=== PATIENT | male | born 1955 | race African-American/Black ===

== ENCOUNTER 2018-01-11 17:12 | Emergency (ER) | payer MEDICARE | END 2018-01-11 20:21 | disposition home or self-care (01) | LOC: D.ER 17:12 | DX: S20.219A Contusion of unspecified front wall of thorax, initial encounter (principal); W01.0XXA Fall on same level from slipping, tripping and stumbling without subsequent striking against object, initial encounter; Y93.89 Activity, other specified; Y92.019 Unspecified place in single-family (private) house as the place of occurrence of the external cause; S16.1XXA Strain of muscle, fascia and tendon at neck level, initial encounter; H40.9 Unspecified glaucoma; F17.200 Nicotine dependence, unspecified, uncomplicated ==

== ENCOUNTER 2018-01-17 14:12 | Emergency (ER) | payer MEDICARE, MEDICAID | END 2018-01-17 18:44 | disposition home or self-care (01) | LOC: D.ER 14:12 | DX: S20.219A Contusion of unspecified front wall of thorax, initial encounter (principal); W19.XXXA Unspecified fall, initial encounter; Y93.89 Activity, other specified; Y92.019 Unspecified place in single-family (private) house as the place of occurrence of the external cause; H40.9 Unspecified glaucoma ==

== ENCOUNTER 2018-03-27 08:49 | Emergency (ER) | payer MEDICARE, MEDICAID ==
[2018-03-27 09:27] LABS: BASOPHILS 0.3 % (0-2); EOSINOPHILS 3.9 % (0-7); HEMATOCRIT 48.1 % (42.0-54.0); HEMOGLOBIN 16.9 g/dL (13.5-17.5); IMMATURE GRANULOCYTES 0.3 % (0-5); LYMPHOCYTES 35.4 % (15-50); MCH 30.2 pg (26.0-34.0); MCHC 35.1 g/dL (31.0-37.0); MEAN PLATELET VOLUME 9.7 fL (7.4-10.4); MONOCYTES 6.4 % (2-11); NEUTROPHILS 53.7 % (40-80); PLATELET COUNT 153 10x3/uL (130-400); RBC 5.59 10x6/uL (4.20-6.10); RDW 12.9 % (11.5-14.5); WBC 7.7 10x3/uL (4.8-10.8)
[2018-03-27 09:52] LABS: APTT 27.9 SECONDS (22.8-39.4); INR 0.93 (0.85-1.17); PROTIME 12.1 SECONDS (11.6-15.0)
[2018-03-27 09:53] LABS: D-DIMER-QUANTITATIVE 0.33 ug/mLFEU (0.20-0.54)
[2018-03-27 09:54] LABS: ALBUMIN 3.7 g/dL (3.4-5.0); ALKALINE PHOSPHATASE 89 U/L (46-116); ALT (SGPT) 24 U/L (10-68); BILIRUBIN - TOTAL 0.88 mg/dL (0.2-1.3); CALC OSMOLALITY 284 mosm/kg (275-300); CALCIUM 9.3 mg/dL (8.5-10.1); CARBON DIOXIDE 28.7 mmol/L (21.0-32.0); CHLORIDE - SERUM 101 mmol/L (98-107); CREATININE - SERUM 0.7 mg/dL (0.6-1.3); GLUCOSE 295 mg/dL (74-106); POTASSIUM - SERUM 3.9 mmol/L (3.5-5.1); PROTEIN - SERUM 7.1 g/dL (6.4-8.2); SODIUM 137 mmol/L (136-145); UREA NITROGEN 12 mg/dL (7-18); eGFR NON AFRICAN AMERICAN > 90 mL/min (90-120)
[2018-03-27 10:04] LABS: CKMB 0.2 U/L (0.0-3.6); CREATINE KINASE 39 UL (21-232)
[2018-03-27 10:07] LABS: TROPONIN-I < 0.017 ng/mL (0.000-0.060)
== END 2018-03-27 11:17 | disposition home or self-care (01) ==
LOC: D.ER 08:49
PROVIDERS: Family Medicine
DX: R73.9 Hyperglycemia, unspecified (principal); S10.93XA Contusion of unspecified part of neck, initial encounter; S30.0XXA Contusion of lower back and pelvis, initial encounter; W20.8XXA Other cause of strike by thrown, projected or falling object, initial encounter; Y93.89 Activity, other specified; Y92.019 Unspecified place in single-family (private) house as the place of occurrence of the external cause; H53.9 Unspecified visual disturbance; F17.200 Nicotine dependence, unspecified, uncomplicated

== ENCOUNTER 2018-06-13 07:33 | Emergency (ER) | payer MEDICARE, MEDICAID ==
[~2018-06-13] VITALS: Ht 177.8 cm; Wt 59.1 kg
[2018-06-13 07:35] VITALS: Ht 177.8 cm; Wt 59.1 kg
[2018-06-13] MEDS ORDERED: COUMADIN1 MG PO (07:37)
[2018-06-13] MEDS ORDERED: BIMATOPROST2.5 ML EACH EYE (07:38)
[2018-06-13] MEDS ORDERED: ACETAMINOPHEN500 M1 PO (11:38)
[2018-06-13] MEDS ORDERED: IBUPROFEN800 MG PO (11:38)
[2018-06-13] MEDS ORDERED: CYCLOBENZAPRINE10 MG PO (11:38)
[2018-06-13 12:00] VITALS: BP 147/89
== END 2018-06-13 12:01 | disposition home or self-care (01) ==
LOC: D.ER 07:33
DX: M79.1 Myalgia (principal); R07.81 Pleurodynia; M25.512 Pain in left shoulder; F17.200 Nicotine dependence, unspecified, uncomplicated

== ENCOUNTER 2018-07-17 11:37 | Emergency (ER) | payer MEDICARE, MEDICAID ==
[~2018-07-17] VITALS: Ht 177.8 cm; Wt 59.1 kg
[~2018-07-17 11:37] MED LIST: ACETAMINOPHEN500 M1 PO; BIMATOPROST2.5 ML EACH EYE; COUMADIN1 MG PO; CYCLOBENZAPRINE10 MG PO; IBUPROFEN800 MG PO
[2018-07-17 11:43] VITALS: Ht 177.8 cm; Wt 59.1 kg
[2018-07-17] MEDS ORDERED: VOLTAREN75 MG PO (16:19)
[2018-07-17 16:57] VITALS: BP 112/82
== END 2018-07-17 16:35 | disposition home or self-care (01) ==
LOC: D.ER 11:37
DX: M25.512 Pain in left shoulder (principal); F17.200 Nicotine dependence, unspecified, uncomplicated

== ENCOUNTER 2018-08-30 14:34 | Emergency (ER) | payer MEDICARE, MEDICAID ==
[~2018-08-30] VITALS: Ht 177.8 cm; Wt 61.4 kg
[~2018-08-30 14:34] MED LIST changes: +VOLTAREN75 MG PO
[2018-08-30 14:51] VITALS: Ht 177.8 cm; Wt 61.4 kg
[2018-08-30] MEDS ORDERED: TORADOL10 MG PO (16:02)
[2018-08-30 16:20] VITALS: BP 138/81
== END 2018-08-30 16:20 | disposition home or self-care (01) ==
LOC: D.ER 14:34
DX: M25.552 Pain in left hip (principal); F17.200 Nicotine dependence, unspecified, uncomplicated

== ENCOUNTER 2018-11-20 12:51 | Emergency (ER) | payer MEDICARE, MEDICAID ==
[~2018-11-20] VITALS: Ht 177.8 cm; Wt 63.6 kg
[~2018-11-20 12:51] MED LIST changes: +TORADOL10 MG PO
[2018-11-20 13:04] VITALS: Ht 177.8 cm; Wt 63.6 kg
[2018-11-20 18:58] VITALS: BP 138/80
== END 2018-11-20 18:59 | disposition home or self-care (01) ==
LOC: D.ER 12:51
DX: S50.02XA Contusion of left elbow, initial encounter (principal); W22.8XXA Striking against or struck by other objects, initial encounter; Y93.89 Activity, other specified; Y92.89 Other specified places as the place of occurrence of the external cause; F17.200 Nicotine dependence, unspecified, uncomplicated

== ENCOUNTER 2018-12-19 10:36 | Emergency (ER) | payer MEDICARE, MEDICAID ==
[~2018-12-19] VITALS: Ht 177.8 cm; Wt 63.6 kg
[2018-12-19 10:39] VITALS: Ht 177.8 cm; Wt 63.6 kg
[2018-12-19] MEDS ORDERED: CYCLOBENZAPRINE10 MG PO (10:57)
[2018-12-19] MEDS ORDERED: VOLTAREN75 MG PO (10:57)
[2018-12-19 11:29] VITALS: BP 134/76
== END 2018-12-19 11:29 | disposition home or self-care (01) ==
LOC: D.ER 10:36
DX: S76.811A Strain of other specified muscles, fascia and tendons at thigh level, right thigh, initial encounter (principal); X50.0XXA Overexertion from strenuous movement or load, initial encounter; Y93.89 Activity, other specified; Y92.89 Other specified places as the place of occurrence of the external cause; F17.200 Nicotine dependence, unspecified, uncomplicated

== ENCOUNTER 2019-03-20 14:02 | Emergency (ER) | payer MEDICARE, MEDICAID ==
[~2019-03-20] VITALS: Ht 177.8 cm; Wt 63.6 kg
[2019-03-20 14:05] VITALS: Ht 177.8 cm; Wt 63.6 kg
[2019-03-20] MEDS ORDERED: TORADOL10 MG PO (15:13)
[2019-03-20] MEDS ORDERED: ROBAXIN500 MG PO (15:13)
[2019-03-20 16:22] VITALS: BP 119/78
== END 2019-03-20 16:05 | disposition home or self-care (01) ==
LOC: D.ER 14:02
DX: M62.830 Muscle spasm of back (principal); M54.16 Radiculopathy, lumbar region

== ENCOUNTER 2019-07-12 12:58 | Emergency (ER) | payer MEDICARE, MEDICAID ==
[~2019-07-12] VITALS: Ht 177.8 cm; Wt 63.6 kg
[~2019-07-12 12:58] MED LIST changes: +ROBAXIN500 MG PO
[2019-07-12 13:01] VITALS: Ht 177.8 cm; Wt 63.6 kg
[2019-07-12 14:14] VITALS: BP 128/74
== END 2019-07-12 14:15 | disposition home or self-care (01) ==
LOC: D.ER 12:58
DX: S73.102A Unspecified sprain of left hip, initial encounter (principal); W19.XXXA Unspecified fall, initial encounter; S80.12XA Contusion of left lower leg, initial encounter; F17.210 Nicotine dependence, cigarettes, uncomplicated

== ENCOUNTER 2019-08-27 09:04 | Emergency (ER) | payer MEDICARE, MEDICAID ==
[~2019-08-27] VITALS: Ht 177.8 cm; Wt 63.6 kg
[2019-08-27 09:12] VITALS: Ht 177.8 cm; Wt 63.6 kg
[2019-08-27] MEDS ORDERED: NAPROSYN500 MG PO (09:55)
[2019-08-27 10:14] VITALS: BP 120/65
== END 2019-08-27 10:15 | disposition home or self-care (01) ==
LOC: D.ER 09:04
DX: S50.01XA Contusion of right elbow, initial encounter (principal); X50.9XXA Other and unspecified overexertion or strenuous movements or postures, initial encounter; F17.210 Nicotine dependence, cigarettes, uncomplicated

== ENCOUNTER 2019-09-18 09:34 | Emergency (ER) | payer MEDICARE, MEDICAID ==
[~2019-09-18] VITALS: Ht 177.8 cm; Wt 63.6 kg
[~2019-09-18 09:34] MED LIST changes: +NAPROSYN500 MG PO
[2019-09-18 09:38] VITALS: BP 140/72; Ht 177.8 cm; Wt 63.6 kg
[2019-09-18 10:02] LABS: BASOPHILS 0.4 % (0-2); EOSINOPHILS 2.3 % (0-7); HEMATOCRIT 48.8 % (42.0-54.0); HEMOGLOBIN 16.7 g/dL (13.5-17.5); IMMATURE GRANULOCYTES 0.3 % (0-5); LYMPHOCYTES 30.5 % (15-50); MCH 30.3 pg (26.0-34.0); MCHC 34.2 g/dL (31.0-37.0); MCV 88.6 fL (80.0-100.0); MEAN PLATELET VOLUME 10.1 fL (7.4-10.4); MONOCYTES 6.7 % (2-11); NEUTROPHILS 59.8 % (40-80); PLATELET COUNT 143 10x3/uL (130-400); RBC 5.51 10x6/uL (4.20-6.10); RDW 13.3 % (11.5-14.5); WBC 7.8 10x3/uL (4.8-10.8)
[2019-09-18 10:21] LABS: ALBUMIN 3.6 g/dL (3.4-5.0); ALKALINE PHOSPHATASE 102 U/L (46-116); ALT (SGPT) 46 U/L (10-68); AMYLASE - SERUM 68 U/L (25-115); BILIRUBIN - TOTAL 0.84 mg/dL (0.2-1.3); CALC OSMOLALITY 288 mosm/kg (275-300); CARBON DIOXIDE 29.6 mmol/L (21.0-32.0); CHLORIDE - SERUM 104 mmol/L (98-107); CREATININE - SERUM 0.7 mg/dL (0.6-1.3); GLUCOSE 332 mg/dL (74-106); LIPASE 176 U/L (73-393); POTASSIUM - SERUM 4.1 mmol/L (3.5-5.1); PROTEIN - SERUM 6.7 g/dL (6.4-8.2); SODIUM 139 mmol/L (136-145); TROPONIN-I < 0.017 ng/mL (0.000-0.060); UREA NITROGEN 6 mg/dL (7-18); eGFR NON AFRICAN AMERICAN > 90 mL/min (90-120)
[2019-09-18 10:48] LABS: APPEARANCE CLEAR (CLEAR); COLOR YELLOW (YELLOW); GLUCOSE 1000 mg/dL (NEGATIVE); KETONE NEGATIVE (NEGATIVE); NITRITE NEGATIVE (NEGATIVE); PROTEIN NEGATIVE (NEGATIVE); UROBILINOGEN NORMAL (NORMAL)
[2019-09-18 10:49] LABS: BILIRUBIN NEGATIVE (NEGATIVE)
[2019-09-18] MEDS ORDERED: METFORMIN HCL500 M1 PO (12:09)
== END 2019-09-18 12:58 | disposition home or self-care (01) ==
LOC: D.ER 09:34
PROVIDERS: Emergency Medicine
DX: R10.32 Left lower quadrant pain (principal); E13.9 Other specified diabetes mellitus without complications; X50.0XXA Overexertion from strenuous movement or load, initial encounter; Y93.9 Activity, unspecified; Y92.9 Unspecified place or not applicable

== ENCOUNTER 2019-10-16 13:20 | Emergency (ER) | payer MEDICARE, MEDICAID ==
[~2019-10-16] VITALS: Ht 177.8 cm; Wt 61.4 kg
[~2019-10-16 13:20] MED LIST changes: +METFORMIN HCL500 M1 PO
[2019-10-16 13:26] VITALS: Ht 177.8 cm; Wt 61.4 kg
[2019-10-16] MEDS ORDERED: HYDROCODON-ACE1 EAC2 PO (14:57)
[2019-10-16 15:12] VITALS: BP 112/74
== END 2019-10-16 15:17 | disposition home or self-care (01) ==
LOC: D.ER 13:20
DX: M79.605 Pain in left leg (principal); E11.9 Type 2 diabetes mellitus without complications; Z79.84 Long term (current) use of oral hypoglycemic drugs

== ENCOUNTER 2019-11-11 12:30 | Emergency (ER) | payer MEDICARE, MEDICAID ==
[~2019-11-11] VITALS: Ht 177.8 cm; Wt 61.4 kg
[~2019-11-11 12:30] MED LIST changes: +HYDROCODON-ACE1 EAC2 PO
[2019-11-11 12:36] VITALS: Ht 177.8 cm; Wt 61.4 kg
[2019-11-11] MEDS ORDERED: CYCLOBENZAPRINE10 MG PO (14:32)
[2019-11-11 14:57] VITALS: BP 138/63
== END 2019-11-11 15:15 | disposition home or self-care (01) ==
LOC: D.ER 12:30
DX: M54.5 Low back pain (principal); M25.552 Pain in left hip

== ENCOUNTER 2019-12-25 08:49 | Emergency (ER) | payer MEDICARE, MEDICAID ==
[~2019-12-25] VITALS: Ht 177.8 cm; Wt 61.4 kg
[2019-12-25 08:52] VITALS: Ht 177.8 cm; Wt 61.4 kg
[2019-12-25] MEDS ORDERED: HYDROCODON-ACE1 EAC7 PO (09:06)
[2019-12-25 09:20] VITALS: BP 128/71
== END 2019-12-25 09:37 | disposition home or self-care (01) ==
LOC: D.ER 08:49
DX: M25.562 Pain in left knee (principal); X58.XXXA Exposure to other specified factors, initial encounter

== ENCOUNTER 2020-01-27 12:54 | Emergency (ER) | payer MEDICARE, MEDICAID ==
[~2020-01-27] VITALS: Ht 177.8 cm; Wt 61.4 kg
[~2020-01-27 12:54] MED LIST changes: +HYDROCODON-ACE1 EAC7 PO
[2020-01-27 12:59] VITALS: Ht 177.8 cm; Wt 61.4 kg
[2020-01-27 14:00] VITALS: BP 152/84
[2020-01-27] MEDS ORDERED: IBUPROFEN800 MG PO (14:12)
[2020-01-27] MEDS ORDERED: ACETAMINOPHEN500 M1 PO (14:12)
[2020-01-27] MEDS ORDERED: CYCLOBENZAPRINE10 MG PO (14:12)
== END 2020-01-27 14:19 | disposition home or self-care (01) ==
LOC: D.ER 12:54
DX: S00.93XA Contusion of unspecified part of head, initial encounter (principal); R51 Headache; W20.8XXA Other cause of strike by thrown, projected or falling object, initial encounter; Y93.9 Activity, unspecified; Y92.9 Unspecified place or not applicable; R55 Syncope and collapse; M79.18 Myalgia, other site; T14.8XXA Other injury of unspecified body region, initial encounter; M54.2 Cervicalgia; S02.5XXA Fracture of tooth (traumatic), initial encounter for closed fracture

== ENCOUNTER 2020-07-12 12:35 | Emergency (ER) | payer MEDICARE, MEDICAID ==
[~2020-07-12] VITALS: Ht 177.8 cm; Wt 61.4 kg
[2020-07-12 12:51] VITALS: Ht 177.8 cm; Wt 61.4 kg
[2020-07-12] MEDS ORDERED: TIMOPTIC 0.25% O5 M1 EACH EYE (12:58)
[2020-07-12] MEDS ORDERED: CYCLOBENZAPRINE10 MG PO (14:14)
[2020-07-12 14:50] VITALS: BP 131/92
== END 2020-07-12 14:50 | disposition home or self-care (01) ==
LOC: D.ER 12:35
DX: S39.012A Strain of muscle, fascia and tendon of lower back, initial encounter (principal); X50.9XXA Other and unspecified overexertion or strenuous movements or postures, initial encounter; Y93.9 Activity, unspecified; Y92.9 Unspecified place or not applicable

== ENCOUNTER 2021-02-04 07:45 | Emergency (ER) | payer MEDICARE, MEDICAID ==
[2020-12-06 11:16] VITALS: Ht 177.8 cm; Wt 61.4 kg
[~2021-02-04] VITALS: Ht 177.8 cm; Wt 61.4 kg
[~2021-02-04 07:45] MED LIST changes: +TIMOPTIC 0.25% O5 M1 EACH EYE
[2021-02-04 07:51] VITALS: BP 123/78
[2021-02-04] MEDS ORDERED: NAPROSYN500 MG PO (08:33)
[2021-02-04] MEDS ORDERED: SKELAXIN800 MG PO (08:33)
== END 2021-02-04 08:46 | disposition home or self-care (01) ==
LOC: D.ER 07:45
DX: M25.512 Pain in left shoulder (principal); M54.2 Cervicalgia; S46.912A Strain of unspecified muscle, fascia and tendon at shoulder and upper arm level, left arm, initial encounter; X50.9XXA Other and unspecified overexertion or strenuous movements or postures, initial encounter; Y93.9 Activity, unspecified; Y92.9 Unspecified place or not applicable

== ENCOUNTER 2021-04-28 12:10 | Emergency (ER) | payer MEDICARE, MEDICAID ==
[~2021-04-28] VITALS: Ht 177.8 cm; Wt 61.4 kg
[~2021-04-28 12:10] MED LIST changes: +SKELAXIN800 MG PO
[2021-04-28 12:16] VITALS: Ht 177.8 cm; Wt 61.4 kg
[2021-04-28] MEDS ORDERED: MOBIC7.5 MG PO (14:15)
[2021-04-28 14:30] VITALS: BP 119/72
== END 2021-04-28 14:30 | disposition home or self-care (01) ==
LOC: D.ER 12:10
DX: M54.5 Low back pain (principal)